=== PATIENT | male | born 1945 | race Caucasian/White ===

== ENCOUNTER 2016-11-23 20:35 | Emergency (ER) | payer OTHER ==
[~2016-11-23 20:35] MED LIST: BENICAR HCT1 TA1 PO; BYSTOLIC5 MG PO; CELEXA20 PO; COQ10100 MG OR; COQ10100 MG PO; CRESTOR10 PO; DIOVAN HC1 PO; ELIQUIS 5 MG TAB5 MG PO; LOP50 PO; NORV10 PO; PRILOSEC40 MG PO; XYZAL5 MG PO
== END 2016-11-23 21:12 | disposition home or self-care (01) ==
LOC: ER 20:35
DX: S50.01XA Contusion of right elbow, initial encounter (principal); I10 Essential (primary) hypertension; I48.91 Unspecified atrial fibrillation; Z79.899 Other long term (current) drug therapy; W19.XXXA Unspecified fall, initial encounter
CPT/HCPCS: 73080-RT; 90471; 90714; 99284